=== PATIENT | female | born 1995 | race Caucasian/White ===

== ENCOUNTER 2016-11-02 19:04 | Emergency (ER) | payer OTHER ==
[~2016-11-02] VITALS: Ht 157.5 cm; Wt 69.4 kg
[~2016-11-02 19:04] MED LIST: AMOX/K CLA400 MG/5 M OR; ATIVAN0.5 MG PO; BACTRIM DS1 TAB OR; BACTRIM DS1 TAB PO; CEPHALEXIN500 MG OR; CIPROFLOXACN500 MG PO; DEPO-ESTRADIO5 MG/ML IM; DEPO-PROVER150 MG/M1; DEPO-PROVER150 MG/ML IM; FLINTSTONES GUM1 CHW PO; IBUPROFEN600 MG PO; INVEGA3 MG OR; IRON325 MG PO; KEFLEX250 MG OR; LAMICTAL100 M1 OR; LITHIUM CARB300 MG PO; MOTRIN400 MG PO; NAPROSYN500 MG PO; NO CURRENT MEDS; NO HOME MEDS; PRENATA3 PO; PROMETHAZINE25 MG OR; PROZAC10 MG PO; PROZAC20 M1 PO; SEIZURE; TORADOL OR; TYLENOL & COD12.5 ML OR; TYLENOL325 MG PO; ULTRAM50 M1 PO; ULTRAM50 MG OR; UNABLE TO RECONCILE; ZOFRAN ODT4 MG PO; [UNRECOGNIZED DRUG - REMARK]
[2016-11-02 20:31] LABS: INFLUENZA A NONE DETECTED (NONE DETECT); INFLUENZA B NONE DETECTED (NONE DETECT)
[2016-11-02] MEDS ORDERED: ROBITUSSIN200 MG/10 PO (20:55)
[2016-11-02] MEDS ORDERED: AMOXICILLIN500 MG PO (20:55)
[2016-11-02 21:00] VITALS: BP 117/66
== END 2016-11-02 21:00 | disposition home or self-care (01) | DRG 203 ==
LOC: ED 19:04
PROVIDERS: Emergency Medicine
DX: J40 Bronchitis, not specified as acute or chronic (principal)

== ENCOUNTER 2018-09-16 21:42 | Emergency (ER) | payer OTHER ==
[~2018-09-16] VITALS: Ht 157.5 cm; Wt 79.4 kg
[~2018-09-16 21:42] MED LIST changes: +AMOXICILLIN500 MG PO; +ROBITUSSIN200 MG/10 PO
[2018-09-16] MEDS ORDERED: NAPROSYN500 MG PO (22:30)
[2018-09-16 23:00] VITALS: BP 120/60
== END 2018-09-16 23:00 | disposition home or self-care (01) ==
LOC: ED 21:42
DX: S93.401A Sprain of unspecified ligament of right ankle, initial encounter (principal); W10.9XXA Fall (on) (from) unspecified stairs and steps, initial encounter

== ENCOUNTER 2019-05-26 15:26 | Emergency (ER) | payer SELFPAY ==
[~2019-05-26] VITALS: Ht 157.5 cm; Wt 77.3 kg
[2019-05-26 16:24] LABS: IMMATURE GRANULOCYTES 0.3 % (0.0-5.0); MEAN CORPUSCULAR HGB 29.9 pG CALC (26.0-32.0); MEAN CORPUSCULAR HGB CONC 33.6 g/L CALC (32.0-36.0); NEUT# 4.32 thou/uL (2.00-7.15); RED BLOOD COUNT 4.38 mill/uL (4.20-5.60); RED CELL DISTRI WIDTH 12.6 % (11.5-15.5)
[2019-05-26 16:28] LABS: HEMOGLOBIN 13.1 g/dl (12.0-16.0)
[2019-05-26 16:36] LABS: URINE BILIRUBIN - DIPSTICK NEGATIVE (NEGATIVE); URINE BLOOD DIPSTICK NEGATIVE (NEGATIVE); URINE COLOR YELLOW; URINE GLUCOSE - DIPSTICK NEGATIVE (NEGATIVE); URINE KETONE NEGATIVE (NEGATIVE); URINE NITRITE - DIPSTICK NEGATIVE (Negative); URINE PH 5.5 (4.5-8.0); URINE PROTEIN - DIPSTICK NEGATIVE (NEG-TRACE); URINE UROBILINOGEN - DIPSTICK 0.2 E.U./dL (0.2)
[2019-05-26 16:37] LABS: ANION GAP 15 (6-22 (CALC)); BILIRUBIN, TOTAL 0.4 mg/dL (0.0-1.4); BUN 9 mg/dL (7-17); BUN/CREATININE RATIO 17 (12-20 (CALC)); CARBON DIOXIDE 24 mmol/l (22-30); CHLORIDE 104 mmol/l (95-108); CREATININE 0.5 mg/dL (0.5-1.0); GFR > 60 ML/MIN (>=60 (CALC)); GFR FOR AFR.AMER. > 60 ML/MIN (>=60 (CALC)); LIPASE 105 u/l (23-300); SGOT/AST 24 u/l (14-36); SODIUM 139 mmol/l (137-146)
[2019-05-26 16:38] LABS: URINE LEUK ESTERASE SMALL (NEGATIVE)
[2019-05-26 16:41] LABS: ALBUMIN 4.5 g/dL (3.2-5.0); ALKALINE PHOSPHATASE 83 u/l (38-126); TOTAL PROTEIN 7.7 g/dL (6.3-8.2)
[2019-05-26 16:47] LABS: URINE RBC 0-2 RBC/hpf (0-5)
[2019-05-26 16:48] LABS: URINE SQUAMOUS EPITHELIAL CELL FEW EPI/hpf (0-FEW)
[2019-05-26 18:10] VITALS: BP 106/66
== END 2019-05-26 18:10 | disposition home or self-care (01) | DRG 392 ==
LOC: ED 15:26
PROVIDERS: Family Medicine
DX: R10.30 Lower abdominal pain, unspecified (principal)

== ENCOUNTER 2019-07-09 | Emergency (ER) | payer SELFPAY ==
[2019-07-09] MEDS ORDERED: VOLTAREN - GENE75 MG PO (12:16)
== END 2019-07-09 12:29 | disposition home or self-care (01) | DRG 563 ==
DX: S86.912A Strain of unspecified muscle(s) and tendon(s) at lower leg level, left leg, initial encounter (principal); X58.XXXA Exposure to other specified factors, initial encounter

== ENCOUNTER 2019-07-21 | Emergency (ER) | payer SELFPAY ==
[~2019-07-21] MED LIST changes: +VOLTAREN - GENE75 MG PO
[2019-07-21 15:25] LABS: HEMATOCRIT 39.1 % (37.0-47.0); IMMATURE GRANULOCYTES 0.1 % (0.0-5.0); MEAN CELL VOLUME 88.3 fL CALC (80.0-100.0); MEAN CORPUSCULAR HGB 29.3 pG CALC (26.0-32.0); MEAN CORPUSCULAR HGB CONC 33.2 g/L CALC (32.0-36.0); NEUT# 4.13 thou/uL (2.00-7.15); RED BLOOD COUNT 4.43 mill/uL (4.20-5.60); RED CELL DISTRI WIDTH 12.2 % (11.5-15.5)
[2019-07-21 15:29] LABS: URINE BILIRUBIN - DIPSTICK NEGATIVE (NEGATIVE); URINE BLOOD DIPSTICK NEGATIVE (NEGATIVE); URINE COLOR YELLOW; URINE GLUCOSE - DIPSTICK NEGATIVE (NEGATIVE); URINE KETONE NEGATIVE (NEGATIVE); URINE NITRITE - DIPSTICK NEGATIVE (Negative); URINE PH 7.5 (4.5-8.0); URINE PROTEIN - DIPSTICK NEGATIVE (NEG-TRACE); URINE UROBILINOGEN - DIPSTICK 0.2 E.U./dL (0.2)
[2019-07-21 15:41] LABS: URINE LEUK ESTERASE LARGE (NEGATIVE)
[2019-07-21 15:45] LABS: ALBUMIN 4.2 g/dL (3.2-5.0); ALKALINE PHOSPHATASE 88 u/l (38-126); ANION GAP 11 (6-22 (CALC)); BILIRUBIN, TOTAL 0.3 mg/dL (0.0-1.4); BUN 10 mg/dL (7-17); BUN/CREATININE RATIO 13 (12-20 (CALC)); CARBON DIOXIDE 26 mmol/l (22-30); CHLORIDE 107 mmol/l (95-108); CREATININE 0.8 mg/dL (0.5-1.0); GFR > 60 ML/MIN (>=60 (CALC)); GFR FOR AFR.AMER. > 60 ML/MIN (>=60 (CALC)); POTASSIUM 4.6 mmol/l (3.5-5.1); SGOT/AST 23 u/l (14-36); SODIUM 139 mmol/l (137-146); TOTAL PROTEIN 7.2 g/dL (6.3-8.2)
[2019-07-21 15:52] LABS: URINE SQUAMOUS EPITHELIAL CELL MODERATE EPI/hpf (0-FEW)
[2019-07-21] MEDS ORDERED: BACTRIM DS1 TAB PO (20:12)
== END 2019-07-21 21:25 | disposition home or self-care (01) | DRG 758 ==
PROVIDERS: Family Medicine
DX: N76.0 Acute vaginitis (principal); N39.0 Urinary tract infection, site not specified; N83.201 Unspecified ovarian cyst, right side

== ENCOUNTER 2019-08-31 | Emergency (ER) | payer SELFPAY ==
[2019-08-31 21:59] LABS: HEMATOCRIT 34.6 % (37.0-47.0); HEMOGLOBIN 11.7 g/dl (12.0-16.0); IMMATURE GRANULOCYTES 0.1 % (0.0-5.0); MEAN CORPUSCULAR HGB 29.8 pG CALC (26.0-32.0); MEAN CORPUSCULAR HGB CONC 33.8 g/dL CAL (32.0-36.0); NEUT# 4.73 thou/uL (2.00-7.15); RED BLOOD COUNT 3.93 mill/uL (4.20-5.60); RED CELL DISTRI WIDTH 12.9 % (11.5-15.5)
[2019-08-31 22:14] LABS: ALBUMIN 3.7 g/dL (3.2-5.0); ALKALINE PHOSPHATASE 74 u/l (38-126); ANION GAP 11 (6-22 (CALC)); BILIRUBIN, TOTAL 0.3 mg/dL (0.0-1.4); BUN 9 mg/dL (7-17); BUN/CREATININE RATIO 15 (12-20 (CALC)); CARBON DIOXIDE 22 mmol/l (22-30); CHLORIDE 109 mmol/l (95-108); CREATININE 0.6 mg/dL (0.5-1.0); GFR > 60 ML/MIN (>=60 (CALC)); GFR FOR AFR.AMER. > 60 ML/MIN (>=60 (CALC)); SGOT/AST 19 u/l (14-36); SODIUM 138 mmol/l (137-146); TOTAL PROTEIN 6.5 g/dL (6.3-8.2)
[2019-08-31 22:20] LABS: POTASSIUM 3.6 mmol/l (3.5-5.1)
[2019-08-31 22:30] LABS: BETA-HCG, QUANT(RESULT NUMBER) 3124 mIU/mL
[2019-08-31 22:53] LABS: URINE BILIRUBIN - DIPSTICK NEGATIVE (NEGATIVE); URINE BLOOD DIPSTICK NEGATIVE (NEGATIVE); URINE COLOR YELLOW; URINE GLUCOSE - DIPSTICK NEGATIVE (NEGATIVE); URINE KETONE NEGATIVE (NEGATIVE); URINE LEUK ESTERASE NEGATIVE (NEGATIVE); URINE NITRITE - DIPSTICK NEGATIVE (Negative); URINE PROTEIN - DIPSTICK NEGATIVE (NEG-TRACE); URINE SPECIFIC GRAVITY 1.025; URINE UROBILINOGEN - DIPSTICK 0.2 E.U./dL (0.2)
== END 2019-09-01 01:12 | disposition home or self-care (01) | DRG 833 ==
PROVIDERS: Family Medicine
DX: O46.91 Antepartum hemorrhage, unspecified, first trimester (principal); Z3A.01 Less than 8 weeks gestation of pregnancy

== ENCOUNTER 2020-08-17 09:58 | Emergency (ER) | payer OTHER ==
[~2020-08-17] VITALS: Ht 157.5 cm; Wt 77.0 kg
[2020-08-17] MEDS ORDERED: KEFLEX500 MG PO (11:20)
[2020-08-17] MEDS ORDERED: BACTRIM DS1 TAB PO (11:20)
[2020-08-17 11:28] VITALS: BP 115/72
== END 2020-08-17 11:28 | disposition home or self-care (01) ==
LOC: ED 09:58
DX: S30.860A Insect bite (nonvenomous) of lower back and pelvis, initial encounter (principal); L08.9 Local infection of the skin and subcutaneous tissue, unspecified; W57.XXXA Bitten or stung by nonvenomous insect and other nonvenomous arthropods, initial encounter

== ENCOUNTER 2020-10-07 16:21 | Emergency (ER) | payer OTHER ==
[~2020-10-07 16:21] MED LIST changes: +KEFLEX500 MG PO
[2020-10-07] MEDS ORDERED: BC PILLS (16:39)
[2020-10-07 16:54] LABS: HEMATOCRIT 39.1 % (37.0-47.0); HEMOGLOBIN 12.8 g/dl (12.0-16.0); IMMATURE GRANULOCYTES 0.2 % (0.0-5.0); MEAN CORPUSCULAR HGB 29.1 pG CALC (26.0-32.0); MEAN CORPUSCULAR HGB CONC 32.7 g/dL CAL (32.0-36.0); NEUT# 3.36 thou/uL (2.00-7.15); RED BLOOD COUNT 4.4 mill/uL (4.20-5.60); RED CELL DISTRI WIDTH 12.8 % (11.5-15.5)
[2020-10-07 16:55] LABS: URINE BILIRUBIN - DIPSTICK NEGATIVE (NEGATIVE); URINE BLOOD DIPSTICK NEGATIVE (NEGATIVE); URINE COLOR YELLOW; URINE GLUCOSE - DIPSTICK NEGATIVE (NEGATIVE); URINE KETONE NEGATIVE (NEGATIVE); URINE PROTEIN - DIPSTICK NEGATIVE (NEG-TRACE); URINE SPECIFIC GRAVITY 1.015; URINE UROBILINOGEN - DIPSTICK 0.2 E.U./dL (0.2)
[2020-10-07 16:56] LABS: MEAN CELL VOLUME 88.9 fL CALC (80.0-100.0)
[2020-10-07 16:57] LABS: URINE LEUK ESTERASE SMALL (NEGATIVE); URINE NITRITE - DIPSTICK NEGATIVE (Negative)
[2020-10-07 17:05] LABS: URINE RBC 0-2 RBC/hpf (0-5); URINE SQUAMOUS EPITHELIAL CELL FEW EPI/hpf (0-FEW)
[2020-10-07 17:06] LABS: ALBUMIN 4.3 g/dL (3.2-5.0); ALKALINE PHOSPHATASE 74 u/l (38-126); ANION GAP 10 (6-22 (CALC)); BUN 9 mg/dL (7-17); BUN/CREATININE RATIO 14 (12-20 (CALC)); CARBON DIOXIDE 26 mmol/l (22-30); CHLORIDE 105 mmol/l (95-108); CREATININE 0.7 mg/dL (0.5-1.0); GFR > 60 ML/MIN (>=60 (CALC)); GFR FOR AFR.AMER. > 60 ML/MIN (>=60 (CALC)); LIPASE 80 u/l (23-300); POTASSIUM 3.7 mmol/l (3.5-5.1); SGOT/AST 20 u/l (14-36); SODIUM 137 mmol/l (137-146); TOTAL PROTEIN 7.7 g/dL (6.3-8.2)
[2020-10-07 17:08] LABS: BILIRUBIN, TOTAL 0.5 mg/dL (0.0-1.4)
[2020-10-07] MEDS ORDERED: PROTONIX40 M2 PO (18:15)
[2020-10-07 18:18] VITALS: BP 99/64
== END 2020-10-07 18:18 | disposition home or self-care (01) ==
LOC: ED 16:21
PROVIDERS: Family Medicine
DX: R10.11 Right upper quadrant pain (principal); R82.71 Bacteriuria

== ENCOUNTER 2021-04-29 10:30 | Emergency (ER) | payer OTHER ==
[~2021-04-29] VITALS: Ht 157.5 cm; Wt 74.8 kg
[~2021-04-29 10:30] MED LIST changes: +BC PILLS; +PROTONIX40 M2 PO
[2021-04-29 11:23] LABS: URINE BILIRUBIN - DIPSTICK NEGATIVE (NEGATIVE); URINE BLOOD DIPSTICK SMALL (NEGATIVE); URINE COLOR YELLOW; URINE GLUCOSE - DIPSTICK NEGATIVE (NEGATIVE); URINE KETONE NEGATIVE (NEGATIVE); URINE LEUK ESTERASE NEGATIVE (NEGATIVE); URINE PH 6.5 (4.5-8.0); URINE PROTEIN - DIPSTICK NEGATIVE (NEG-TRACE)
[2021-04-29 11:24] LABS: URINE NITRITE - DIPSTICK NEGATIVE (Negative)
[2021-04-29 11:34] LABS: URINE BACTERIA FEW hpf; URINE RBC 0-2 RBC/hpf (0-5); URINE SQUAMOUS EPITHELIAL CELL FEW EPI/hpf (0-FEW); URINE TRANSITIONAL EPI. CELLS FEW hpf; URINE WBC 50-100 WBC/hpf (0-5)
[2021-04-29] MEDS ORDERED: BACTRIM DS1 TAB PO (11:40)
[2021-04-29] MEDS ORDERED: PYRIDIUM200 MG PO (11:40)
[2021-04-29 11:50] VITALS: BP 117/62
== END 2021-04-29 11:50 | disposition home or self-care (01) ==
LOC: ED 10:30
DX: N39.0 Urinary tract infection, site not specified (principal); B96.20 Unspecified Escherichia coli [E. coli] as the cause of diseases classified elsewhere

== ENCOUNTER 2021-07-01 08:27 | Emergency (ER) | payer OTHER ==
[~2021-07-01] VITALS: Ht 157.5 cm; Wt 72.7 kg
[~2021-07-01 08:27] MED LIST changes: +PYRIDIUM200 MG PO
[2021-07-01] MEDS ORDERED: MOTRIN800 MG PO (09:06)
[2021-07-01] MEDS ORDERED: PAIN RELIEF500 M3 PO (09:07)
[2021-07-01] MEDS ORDERED: ZPAK PO (09:45)
[2021-07-01 10:39] VITALS: BP 113/66
== END 2021-07-01 10:40 | disposition home or self-care (01) ==
LOC: ED 08:27
DX: U07.1 COVID-19 (principal); T81.41XA Infection following a procedure, superficial incisional surgical site, initial encounter; L03.311 Cellulitis of abdominal wall; Y83.8 Other surgical procedures as the cause of abnormal reaction of the patient, or of later complication, without mention of misadventure at the time of the procedure

== ENCOUNTER 2021-10-26 20:10 | Emergency (ER) | payer OTHER ==
[~2021-10-26 20:10] MED LIST changes: +MOTRIN800 MG PO; +PAIN RELIEF500 M3 PO; +ZPAK PO
== END 2021-10-26 21:00 | disposition left against medical advice (07) | DRG 951 ==
LOC: ED 20:10 → LWOBS 21:00
DX: Z53.21 Procedure and treatment not carried out due to patient leaving prior to being seen by health care provider (principal)

== ENCOUNTER 2021-12-01 09:36 | Emergency (ER) | payer OTHER ==
[~2021-12-01] VITALS: Ht 157.5 cm; Wt 83.2 kg
[2021-12-01 09:48] VITALS: BP 116/59
[2021-12-01 09:54] VITALS: BP 110/63
[2021-12-01 10:00] VITALS: BP 107/53
[2021-12-01] MEDS ORDERED: VOLTAREN1%GEL TOP (10:24)
[2021-12-01 10:31] VITALS: BP 97/55
[2021-12-01 10:40] VITALS: BP 97/55
== END 2021-12-01 10:45 | disposition home or self-care (01) ==
LOC: ED 09:36
DX: M25.532 Pain in left wrist (principal); M79.642 Pain in left hand

== ENCOUNTER 2022-02-20 20:38 | Emergency (ER) | payer OTHER ==
[~2022-02-20] VITALS: Ht 157.5 cm; Wt 80.0 kg
[~2022-02-20 20:38] MED LIST changes: +VOLTAREN1%GEL TOP
[2022-02-20] MEDS ORDERED: EC-NAPROXEN500 MG PO (23:12)
[2022-02-20] MEDS ORDERED: OMNICEF300 M1 PO (23:12)
[2022-02-20] MEDS ORDERED: DOXYCYCLINE100 MG PO (23:12)
[2022-02-20 23:18] VITALS: BP 119/75
== END 2022-02-20 23:32 | disposition home or self-care (01) ==
LOC: ED 20:38
DX: L03.113 Cellulitis of right upper limb (principal)

== ENCOUNTER 2022-11-28 22:51 | Emergency (ER) | payer OTHER ==
[~2022-11-28] VITALS: Ht 157.5 cm; Wt 71.0 kg
[~2022-11-28 22:51] MED LIST changes: +DOXYCYCLINE100 MG PO; +EC-NAPROXEN500 MG PO; +OMNICEF300 M1 PO
[2022-11-28 22:59] VITALS: BP 114/72
[2022-11-28 23:16] VITALS: BP 109/67
[2022-11-29 00:11] LABS: BASO% 0.4 % (0-3); EOS% 2.1 % (0-8); HEMATOCRIT 41.7 % (37.0-47.0); HEMOGLOBIN 13.9 g/dl (12.0-16.0); IMMATURE GRANULOCYTES 0.2 % (0.0-5.0); LYMPH% 25.5 % (15-41); MEAN CELL VOLUME 89.3 fL CALC (80.0-100.0); MEAN CORPUSCULAR HGB 29.8 pG CALC (26.0-32.0); MEAN CORPUSCULAR HGB CONC 33.3 g/dL CAL (32.0-36.0); MONO% 5.6 % (2-13); NEUT# 5.88 thou/uL (2.00-7.15); NEUT% 66.2 % (42-76); RED BLOOD COUNT 4.67 mill/uL (4.20-5.60); RED CELL DISTRI WIDTH 12.1 % (11.5-15.5)
[2022-11-29 00:26] LABS: ALBUMIN 4.8 g/dL (3.2-5.0); ALKALINE PHOSPHATASE 79 u/l (38-126); ANION GAP 16 (6-22 (CALC)); BUN 11 mg/dL (7-17); BUN/CREATININE RATIO 14 (12-20 (CALC)); CARBON DIOXIDE 23 mmol/l (22-30); CHLORIDE 106 mmol/l (95-108); CREATININE 0.8 mg/dL (0.5-1.0); GFR FOR AFR.AMER. > 60 ML/MIN (>=60 (CALC)); GFR OTHER RACES > 60 ML/MIN (>=60 (CALC)); POTASSIUM 3.9 mmol/l (3.5-5.1); SGOT/AST 31 u/l (14-36); SODIUM 140 mmol/l (137-146); TOTAL PROTEIN 8.5 g/dL (6.3-8.2)
[2022-11-29 00:45] LABS: BILIRUBIN, TOTAL 0.6 mg/dL (0.02-1.3)
[2022-11-29 01:19] VITALS: BP 91/50
[2022-11-29 01:31] VITALS: BP 95/49
[2022-11-29] MEDS ORDERED: KEPPRA500 M2 PO (01:48)
[2022-11-29 02:00] VITALS: BP 93/48
[2022-11-29 02:30] VITALS: BP 86/47
[2022-11-29 03:05] VITALS: BP 98/63
== END 2022-11-29 03:05 | disposition home or self-care (01) ==
LOC: ED 22:51
PROVIDERS: Emergency Medicine
DX: G40.909 Epilepsy, unspecified, not intractable, without status epilepticus (principal)
CPT/HCPCS: J1953

== ENCOUNTER 2022-12-06 14:37 | Emergency (ER) | payer OTHER ==
[~2022-12-06] VITALS: Ht 157.5 cm; Wt 85.0 kg
[~2022-12-06 14:37] MED LIST changes: +KEPPRA500 M2 PO
[2022-12-06 14:48] VITALS: BP 109/74
[2022-12-06 14:57] VITALS: BP 115/94
[2022-12-06 15:00] VITALS: BP 115/77
[2022-12-06 15:58] LABS: URINE BILIRUBIN - DIPSTICK NEGATIVE (NEGATIVE); URINE BLOOD DIPSTICK SMALL (NEGATIVE); URINE COLOR YELLOW; URINE GLUCOSE - DIPSTICK NEGATIVE (NEGATIVE); URINE KETONE NEGATIVE (NEGATIVE); URINE PROTEIN - DIPSTICK NEGATIVE (NEG-TRACE); URINE SPECIFIC GRAVITY 1.025; URINE UROBILINOGEN - DIPSTICK 0.2 E.U./dL (0.2)
[2022-12-06 16:00] LABS: URINE LEUK ESTERASE MODERATE (NEGATIVE); URINE NITRITE - DIPSTICK NEGATIVE (Negative)
[2022-12-06 16:01] LABS: URINE BACTERIA FEW hpf; URINE SQUAMOUS EPITHELIAL CELL MODERATE EPI/hpf (0-FEW)
[2022-12-06 16:35] VITALS: BP 108/57
[2022-12-06 17:01] VITALS: BP 116/64
[2022-12-06 17:21] LABS: BASO% 0.4 % (0-3); EOS% 1.3 % (0-8); HEMATOCRIT 39.3 % (37.0-47.0); HEMOGLOBIN 12.8 g/dl (12.0-16.0); LYMPH% 13.4 % (15-41); MEAN CELL VOLUME 90.3 fL CALC (80.0-100.0); MEAN CORPUSCULAR HGB 29.4 pG CALC (26.0-32.0); MEAN CORPUSCULAR HGB CONC 32.6 g/dL CAL (32.0-36.0); MONO% 4.7 % (2-13); NEUT# 8.76 thou/uL (2.00-7.15); NEUT% 80.2 % (42-76); RED BLOOD COUNT 4.35 mill/uL (4.20-5.60); RED CELL DISTRI WIDTH 12.2 % (11.5-15.5)
[2022-12-06 17:34] LABS: ALBUMIN 4.2 g/dL (3.2-5.0); ALKALINE PHOSPHATASE 81 u/l (38-126); ANION GAP 10 (6-22 (CALC)); BILIRUBIN, TOTAL 0.7 mg/dL (0.02-1.3); BUN 10 mg/dL (7-17); BUN/CREATININE RATIO 14 (12-20 (CALC)); CARBON DIOXIDE 24 mmol/l (22-30); CHLORIDE 109 mmol/l (95-108); CREATININE 0.7 mg/dL (0.5-1.0); GFR FOR AFR.AMER. > 60 ML/MIN (>=60 (CALC)); GFR OTHER RACES > 60 ML/MIN (>=60 (CALC)); POTASSIUM 4.3 mmol/l (3.5-5.1); SGOT/AST 27 u/l (14-36); SODIUM 139 mmol/l (137-146); TOTAL PROTEIN 7.5 g/dL (6.3-8.2)
[2022-12-06] MEDS ORDERED: TRAMADOL HYDROC50 M1 PO (19:15)
[2022-12-06] MEDS ORDERED: METHOCARBAMOL500 MG PO (19:15)
[2022-12-06] MEDS ORDERED: KEFLEX500 MG PO (19:44)
[2022-12-06 19:45] VITALS: BP 112/62
== END 2022-12-06 19:54 | disposition home or self-care (01) | DRG 605 ==
LOC: ED 14:37
PROVIDERS: Nurse Practitioner
DX: S80.01XA Contusion of right knee, initial encounter (principal); S30.1XXA Contusion of abdominal wall, initial encounter; S80.211A Abrasion, right knee, initial encounter; G40.909 Epilepsy, unspecified, not intractable, without status epilepticus; V48.5XXA Car driver injured in noncollision transport accident in traffic accident, initial encounter
CPT/HCPCS: Q9967

== ENCOUNTER 2022-12-14 15:55 | Emergency (ER) | payer OTHER ==
[~2022-12-14 15:55] MED LIST changes: +METHOCARBAMOL500 MG PO; +TRAMADOL HYDROC50 M1 PO
== END 2022-12-14 16:53 | disposition left against medical advice (07) | DRG 951 ==
LOC: ED 15:55 → LWOBS 16:53
DX: Z53.21 Procedure and treatment not carried out due to patient leaving prior to being seen by health care provider (principal)

== ENCOUNTER 2023-06-08 12:45 | Emergency (ER) | payer MEDICAID ==
[~2023-06-08] VITALS: Ht 157.5 cm; Wt 83.9 kg
[~2023-06-08 12:45] MED LIST changes: +NAPROXEN500 MG PO
[2023-06-08 13:10] LABS: BASO% 0.4 % (0-3); EOS% 1.6 % (0-8); HEMATOCRIT 41.3 % (37.0-47.0); HEMOGLOBIN 13.8 g/dl (12.0-16.0); IMMATURE GRANULOCYTES 0.2 % (0.0-5.0); LYMPH% 30.9 % (15-41); MEAN CORPUSCULAR HGB 30.4 pG CALC (26.0-32.0); MEAN CORPUSCULAR HGB CONC 33.4 g/dL CAL (32.0-36.0); MONO% 5.8 % (2-13); NEUT# 3.14 thou/uL (2.00-7.15); NEUT% 61.1 % (42-76); RED BLOOD COUNT 4.54 mill/uL (4.20-5.60); RED CELL DISTRI WIDTH 12.1 % (11.5-15.5)
[2023-06-08 13:14] VITALS: BP 118/63
[2023-06-08 13:23] LABS: URINE BILIRUBIN - DIPSTICK Negative (NEGATIVE); URINE BLOOD DIPSTICK Moderate (NEGATIVE); URINE GLUCOSE - DIPSTICK Negative (NEGATIVE); URINE KETONE Negative (NEGATIVE); URINE LEUK ESTERASE Trace (NEGATIVE); URINE NITRITE - DIPSTICK Negative (Negative); URINE PH 6.5 (4.5-8.0); URINE PROTEIN - DIPSTICK Negative (NEG-TRACE); URINE SPECIFIC GRAVITY 1.015; URINE UROBILINOGEN - DIPSTICK 0.2 E.U./dL (0.2)
[2023-06-08 13:24] LABS: URINE COLOR Yellow
[2023-06-08 13:26] LABS: ALBUMIN 4.3 g/dL (3.2-5.0); ALKALINE PHOSPHATASE 77 u/l (38-126); ANION GAP 11 (6-22 (CALC)); BILIRUBIN, TOTAL 0.3 mg/dL (0.02-1.3); BUN 10 mg/dL (7-17); BUN/CREATININE RATIO 14 (12-20 (CALC)); CARBON DIOXIDE 24 mmol/l (22-30); CHLORIDE 109 mmol/l (95-108); CREATININE 0.7 mg/dL (0.5-1.0); GFR FOR AFR.AMER. > 60 ML/MIN (>=60 (CALC)); GFR OTHER RACES > 60 ML/MIN (>=60 (CALC)); POTASSIUM 3.9 mmol/l (3.5-5.1); SGOT/AST 28 u/l (14-36); SODIUM 139 mmol/l (137-146); TOTAL PROTEIN 7.2 g/dL (6.3-8.2)
[2023-06-08 13:31] LABS: URINE BACTERIA FEW hpf; URINE SQUAMOUS EPITHELIAL CELL FEW EPI/hpf (0-FEW); URINE WBC 0-2 WBC/hpf (0-5)
[2023-06-08 16:05] VITALS: BP 118/63
== END 2023-06-08 16:15 | disposition home or self-care (01) ==
LOC: ED 12:45
PROVIDERS: Nurse Practitioner
DX: N93.9 Abnormal uterine and vaginal bleeding, unspecified (principal); G40.909 Epilepsy, unspecified, not intractable, without status epilepticus

== ENCOUNTER 2023-07-12 19:30 | Emergency (ER) | payer MEDICAID ==
[~2023-07-12] VITALS: Ht 157.5 cm; Wt 104.0 kg
[2023-07-12 19:42] VITALS: BP 129/97
[2023-07-12 20:02] VITALS: BP 125/72
[2023-07-12 20:18] LABS: BASO% 0.5 % (0-3); EOS% 2.4 % (0-8); HEMATOCRIT 37.9 % (37.0-47.0); HEMOGLOBIN 12.5 g/dl (12.0-16.0); IMMATURE GRANULOCYTES 0.1 % (0.0-5.0); LYMPH% 29.1 % (15-41); MEAN CELL VOLUME 91.1 fL CALC (80.0-100.0); NEUT# 4.55 thou/uL (2.00-7.15); NEUT% 60.9 % (42-76); RED BLOOD COUNT 4.16 mill/uL (4.20-5.60); RED CELL DISTRI WIDTH 12.2 % (11.5-15.5)
[2023-07-12 20:30] LABS: ALBUMIN 4.1 g/dL (3.2-5.0); ALKALINE PHOSPHATASE 72 u/l (38-126); ANION GAP 12 (6-22 (CALC)); BILIRUBIN, TOTAL 0.4 mg/dL (0.02-1.3); BUN 15 mg/dL (7-17); BUN/CREATININE RATIO 18 (12-20 (CALC)); CARBON DIOXIDE 26 mmol/l (22-30); CHLORIDE 105 mmol/l (95-108); CREATININE 0.9 mg/dL (0.5-1.0); GFR FOR AFR.AMER. > 60 ML/MIN (>=60 (CALC)); GFR OTHER RACES > 60 ML/MIN (>=60 (CALC)); SGOT/AST 32 u/l (14-36); SODIUM 140 mmol/l (137-146); TOTAL PROTEIN 6.7 g/dL (6.3-8.2)
[2023-07-12 20:58] LABS: URINE BILIRUBIN - DIPSTICK Negative (NEGATIVE); URINE BLOOD DIPSTICK Negative (NEGATIVE); URINE CLARITY Clear; URINE GLUCOSE - DIPSTICK Negative (NEGATIVE); URINE KETONE Negative (NEGATIVE); URINE LEUK ESTERASE Trace (Negative); URINE NITRITE - DIPSTICK Negative (Negative); URINE PROTEIN - DIPSTICK Negative (NEG-TRACE); URINE SPECIFIC GRAVITY 1.015; URINE UROBILINOGEN - DIPSTICK 0.2 E.U./dL (0.2)
[2023-07-12 20:59] LABS: URINE COLOR Yellow
[2023-07-12 21:00] VITALS: BP 112/58
[2023-07-12 22:00] VITALS: BP 123/74
[2023-07-12 23:00] VITALS: BP 132/75
[2023-07-13 00:01] VITALS: BP 105/67
[2023-07-13] MEDS ORDERED: SULFAMETHOXAZOLE W/TRIMETHOPRI 1 COMBO TAB PO ONE (00:55)
[2023-07-13] MEDS ORDERED: BACTRIM DS1 TAB PO (00:55)
[2023-07-13 01:00] VITALS: BP 102/54
== END 2023-07-13 01:10 | disposition home or self-care (01) ==
LOC: ED 19:30
PROVIDERS: Family Medicine
DX: G56.01 Carpal tunnel syndrome, right upper limb (principal); N39.0 Urinary tract infection, site not specified; G40.909 Epilepsy, unspecified, not intractable, without status epilepticus
CPT/HCPCS: Q9967

== ENCOUNTER 2024-01-01 06:43 | Emergency (ER) | payer MEDICAID ==
[2024-01-01] VITALS (14 sets, daily range): BP systolic 88–110; BP diastolic 43–75
[~2024-01-01] VITALS: Ht 157.5 cm; Wt 70.0 kg
[~2024-01-01 06:43] MED LIST changes: +AMOX/K CLAV875 M1 PO
[2024-01-01] MEDS ORDERED: KETOROLAC TROMETHAMINE 30 MG/ML SDV IV ONE (07:15)
[2024-01-01 07:18] LABS: BASO% 0.4 % (0-3); EOS% 1.9 % (0-8); HEMATOCRIT 38.6 % (37.0-47.0); HEMOGLOBIN 12.9 g/dl (12.0-16.0); IMMATURE GRANULOCYTES 0.1 % (0.0-5.0); LYMPH% 26.2 % (15-41); MEAN CELL VOLUME 90.2 fL CALC (80.0-100.0); MEAN CORPUSCULAR HGB 30.1 pG CALC (26.0-32.0); MEAN CORPUSCULAR HGB CONC 33.4 g/dL CAL (32.0-36.0); MONO% 6.8 % (2-13); NEUT# 4.88 thou/uL (2.00-7.15); NEUT% 64.6 % (42-76); RED BLOOD COUNT 4.28 mill/uL (4.20-5.60)
[2024-01-01 07:31] LABS: ALBUMIN 4.1 g/dL (3.2-5.0); CREATININE 0.7 mg/dL (0.5-1.0); POTASSIUM 3.9 mmol/l (3.5-5.1)
[2024-01-01 07:34] LABS: BILIRUBIN, TOTAL 0.7 mg/dL (0.02-1.3)
== END 2024-01-01 09:57 | disposition home or self-care (01) ==
LOC: ED 06:43
PROVIDERS: Family Medicine
DX: R07.9 Chest pain, unspecified (principal); G40.909 Epilepsy, unspecified, not intractable, without status epilepticus; Z20.822 Contact with and (suspected) exposure to COVID-19

== ENCOUNTER 2024-03-17 14:30 | Emergency (ER) | payer MEDICAID ==
[~2024-03-17] VITALS: Ht 157.5 cm; Wt 81.6 kg
[2024-03-17] VITALS (7 sets, daily range): BP systolic 86–113; BP diastolic 47–76
[2024-03-17 15:26] LABS: URINE BILIRUBIN - DIPSTICK Negative (NEGATIVE); URINE BLOOD DIPSTICK Large (NEGATIVE); URINE GLUCOSE - DIPSTICK Negative (NEGATIVE); URINE KETONE Negative (NEGATIVE); URINE NITRITE - DIPSTICK Negative (Negative); URINE PROTEIN - DIPSTICK Trace mg/dL (NEG-TRACE); URINE SPECIFIC GRAVITY >=1.030; URINE UROBILINOGEN - DIPSTICK 0.2 E.U./dL (0.2)
[2024-03-17 15:28] LABS: URINE COLOR Yellow; URINE LEUK ESTERASE Moderate (NEGATIVE)
[2024-03-17 15:32] LABS: URINE BACTERIA MODERATE hpf; URINE SQUAMOUS EPITHELIAL CELL FEW EPI/hpf (0-FEW)
[2024-03-17 15:32] LABS: BASO% 0.7 % (0-3); HEMATOCRIT 39.8 % (37.0-47.0); HEMOGLOBIN 13.5 g/dl (12.0-16.0); IMMATURE GRANULOCYTES 0.1 % (0.0-5.0); LYMPH% 27.6 % (15-41); MEAN CORPUSCULAR HGB 30.2 pG CALC (26.0-32.0); MEAN CORPUSCULAR HGB CONC 33.9 g/dL CAL (32.0-36.0); MONO% 7.7 % (2-13); NEUT# 4.34 thou/uL (2.00-7.15); NEUT% 61.9 % (42-76); RED BLOOD COUNT 4.47 mill/uL (4.20-5.60); RED CELL DISTRI WIDTH 11.8 % (11.5-15.5)
[2024-03-17 15:40] LABS: ALBUMIN 4.2 g/dL (3.2-5.0); BILIRUBIN, TOTAL 0.5 mg/dL (0.02-1.3); CREATININE 0.7 mg/dL (0.5-1.0); POTASSIUM 4.1 mmol/l (3.5-5.1)
[2024-03-17] MEDS ORDERED: CEPHALEXIN500 M1 PO (18:10)
== END 2024-03-17 18:15 | disposition home or self-care (01) ==
LOC: ED 14:30
PROVIDERS: Family Medicine; Nurse Practitioner
DX: N39.0 Urinary tract infection, site not specified (principal); G40.909 Epilepsy, unspecified, not intractable, without status epilepticus
CPT/HCPCS: Q9967

== ENCOUNTER 2024-05-16 15:13 | Emergency (ER) | payer MEDICAID ==
[~2024-05-16] VITALS: Ht 157.5 cm; Wt 86.0 kg
[~2024-05-16 15:13] MED LIST changes: +CEPHALEXIN500 M1 PO
[2024-05-16] MEDS ORDERED: MECLIZINE HCL 25 MG/TAB PO ONE (15:25)
[2024-05-16 15:32] VITALS: BP 116/61
[2024-05-16] MEDS ORDERED: diazePAM 10 MG/2 ML VIAL IV ONE (15:50)
[2024-05-16] MEDS ORDERED: LACTATED RINGER'S 1,000 ML IV ONE (15:55)
[2024-05-16 15:57] LABS: BASO% 0.4 % (0-3); EOS% 1.7 % (0-8); HEMATOCRIT 41.3 % (37.0-47.0); HEMOGLOBIN 13.2 g/dl (12.0-16.0); IMMATURE GRANULOCYTES 0.5 % (0.0-5.0); MEAN CELL VOLUME 95.4 fL CALC (80.0-100.0); MEAN CORPUSCULAR HGB 30.5 pG CALC (26.0-32.0); MONO% 7.7 % (2-13); NEUT# 4.07 thou/uL (2.00-7.15); NEUT% 53.7 % (42-76); RED BLOOD COUNT 4.33 mill/uL (4.20-5.60); RED CELL DISTRI WIDTH 12.2 % (11.5-15.5)
[2024-05-16 16:26] LABS: ALBUMIN 4.4 g/dL (3.2-5.0); ALKALINE PHOSPHATASE 83 u/l (38-126); ANION GAP 14 (6-22 (CALC)); BILIRUBIN, TOTAL 0.4 mg/dL (0.02-1.3); BUN 13 mg/dL (7-17); BUN/CREATININE RATIO 16 (12-20 (CALC)); CARBON DIOXIDE 22 mmol/l (22-30); CHLORIDE 108 mmol/l (95-108); CREATININE 0.8 mg/dL (0.5-1.0); ESTIMATED GFR 103 ML/MIN (>=90 (CALC)); POTASSIUM 3.9 mmol/l (3.5-5.1); SGOT/AST 40 u/l (14-36); SODIUM 140 mmol/l (137-146); TOTAL PROTEIN 7.4 g/dL (6.3-8.2)
[2024-05-16] MEDS ORDERED: LORazepam 2 MG/ML IV ONE (16:30)
[2024-05-16 16:39] VITALS: BP 119/74
[2024-05-16 16:45] VITALS: BP 120/91
[2024-05-16 17:00] VITALS: BP 102/69
[2024-05-16 18:11] LABS: URINE BILIRUBIN - DIPSTICK Negative (NEGATIVE); URINE BLOOD DIPSTICK Negative (NEGATIVE); URINE GLUCOSE - DIPSTICK Negative (NEGATIVE); URINE KETONE Negative (NEGATIVE); URINE LEUK ESTERASE Negative (NEGATIVE); URINE NITRITE - DIPSTICK Negative (Negative); URINE PH 7.5 (4.5-8.0); URINE PROTEIN - DIPSTICK Negative (NEG-TRACE); URINE SPECIFIC GRAVITY 1.015; URINE UROBILINOGEN - DIPSTICK 0.2 E.U./dL (0.2)
[2024-05-16 18:15] LABS: URINE COLOR Yellow
[2024-05-16] MEDS ORDERED: DIAZEPAM RECTAL10 MG PR (19:26)
[2024-05-16 19:47] VITALS: BP 102/69
== END 2024-05-16 19:44 | disposition home or self-care (01) ==
LOC: ED 15:13
PROVIDERS: Emergency Medicine
DX: G40.909 Epilepsy, unspecified, not intractable, without status epilepticus (principal)
CPT/HCPCS: J1953; J2060; J3360